=== PATIENT | male | born 1950 | race Caucasian/White ===

== ENCOUNTER 2021-03-22 09:15 | Outpatient (CLI) | payer OTHER ==
[2021-03-22 11:41] LABS: Estimated GFR-MDRD - POC Greater than 90
== END 2021-03-22 09:16 | disposition home or self-care (01) ==
LOC: TBSIIMAG 09:15
PROVIDERS: ATTEND Urology
DX: R97.20 Elevated prostate specific antigen [PSA] (principal)
CPT/HCPCS: 72197; 82565